=== PATIENT | female | born 1955 | race Caucasian/White ===

== ENCOUNTER 2022-02-11 05:41 | Day surgery (SDC) | payer MEDICARE ==
[2022-02-10 09:21] VITALS: BMI 26.4
[2022-02-11] MEDS ORDERED: EPINEPHrine 1 MG/ML AMP ONE (06:30)
[2022-02-11] MEDS ORDERED: Thrombin 5000 UNITS/5 ML VIAL ONE (06:30)
[2022-02-11] MEDS ORDERED: Bupivacaine PF 0.5% 30 ML VIAL ONE (06:30)
[2022-02-11] MEDS ORDERED: Sodium Chloride 0.9% 100 ML ONE ×2 (06:51→11:19)
[2022-02-11] MEDS ORDERED: CEFAZOLIN 2 GM VIAL ONE (06:51)
[2022-02-11] MEDS ORDERED: fentaNYL Citrate/PF 100 MCG/2 ML SYRINGE ONE (06:55)
[2022-02-11] MEDS ORDERED: Rocuronium Bromide 10 MG/ML (10ML VIAL) ONE (07:05)
[2022-02-11] MEDS ORDERED: Glycopyrrolate 0.2 MG/ML 5 ML SYRINGE ONE (07:05)
[2022-02-11] MEDS ORDERED: Dexamethasone 20 MG/5 ML VIAL ONE (07:05)
[2022-02-11] MEDS ORDERED: Lidocaine 1% PF 5 ML VIAL ONE (07:05)
[2022-02-11] MEDS ORDERED: Ondansetron PF 4 MG/2 ML Vial ONE (07:05)
[2022-02-11] MEDS ORDERED: Phenylephrine 10 MG/ML VIAL ONE (07:05)
[2022-02-11] MEDS ORDERED: ePHEDrine 50 MG/ML VIAL ONE (07:05)
[2022-02-11] MEDS ORDERED: Ketorolac Tromethamine 30 MG/ML VIAL ONE (07:05)
[2022-02-11] MEDS ORDERED: PROPOFOL 200 MG/20 ML VIAL ONE (07:05)
[2022-02-11] MEDS ORDERED: HYDROmorphone 2 MG/ML VIAL ONE (08:19)
[2022-02-11] MEDS ORDERED: SUGAMMADEX SODIUM 200 MG/2 ML VIAL ONE (08:32)
[2022-02-11] MEDS ORDERED: Fentanyl 100 MCG/2 ML VIAL ONE (08:46)
[2022-02-11] MEDS ORDERED: cefOXitin 2 GM VIAL ONE (11:19)
[2022-02-11] MEDS ORDERED: Acetaminophen/Codeine 30-300mg Tablet ONE (11:29)
== END 2022-02-11 12:20 | disposition home or self-care (01) ==
LOC: SDC 05:41
PROVIDERS: ATTEND Neurological Surgery
PROC: 00NY0ZZ Release Lumbar Spinal Cord, Open Approach (ICD-10-PCS; principal; 2022-02-11)
DX: M48.062 Spinal stenosis, lumbar region with neurogenic claudication (principal); M54.16 Radiculopathy, lumbar region; E03.9 Hypothyroidism, unspecified; Z79.82 Long term (current) use of aspirin; Z79.890 Hormone replacement therapy
CPT/HCPCS: 76000; J0171; J0690; J0694; J1100; J1170; J1885; J2370; J2405; J2704; J2710; J3010; J3490; S0020